=== PATIENT | male | born 1960 | race Asian ===

== ENCOUNTER 2021-02-03 20:08 | Emergency (ER) | payer SELFPAY ==
[~2021-02-03] VITALS: Ht 165.1 cm; Wt 68.0 kg
[2021-02-03] MEDS ORDERED: EPINEPHrine HCL 1 MG/10 ML SYRG IV ONE (20:14)
[2021-02-03] MEDS ORDERED: SODIUM BICARBONATE 8.4% INJ 50ML SYRINGE IV ONE (20:14)
[2021-02-03] MEDS ORDERED: AMIODARONE HCL (50 MG/ ML) 3 ML VIAL IV ONE (20:14)
[2021-02-03] MEDS ORDERED: ACCU-CHEK COMFORT CURVE STRIP VI ONE (20:30)
[2021-02-03 20:41] LABS: Hematocrit 35.8 % (41.0-53.0); Hemoglobin 11.4 g/dL (13.5-17.5); Mean Corpuscular Hemoglobin 30.8 pg (28.0-32.0); Mean Corpuscular Hgb Conc. 31.8 g/dL (32.0-36.0); Red Blood Cells 3.69 10^6/uL (4.5-5.90); Red Cell Distribution Width 15.5 % (11.8-14.3); White Blood Cell 8.6 10^3/uL (4.4-10.8)
[2021-02-03 20:54] LABS: Basophils % (manual) 0 (0.0-2.0); Blast Cells 0; Eosinophils % (manual) 0 (0-7); Myelocytes % 0; Promyelocytes % 0; Reactive Lymphocytes 0
[2021-02-03 20:59] LABS: Alanine Aminotransferase 41 U/L (16-61); Albumin 2.2 g/dL (3.4-5.0); Anion Gap 18 (5-15); Aspartate Aminotransferase 94 U/L (15-37); BUN/Creatinine Ratio 19.3; Blood Urea Nitrogen 22 mg/dL (7-18); Calcium 7.7 mg/dL (8.5-10.1); Carbon Dioxide 21 mmol/L (21-32); Chloride 100 mmol/L (98-107); GFR African American 84 mL/min; GFR Non-African American 69 mL/min; Glucose 371 mg/dL (74-106); Potassium 4.1 mmol/L (3.5-5.1); Sodium 139 mmol/L (136-145)
[2021-02-03 21:05] LABS: Alkaline Phosphatase 132 U/L (45-117); Bilirubin, Total 0.5 mg/dL (0.2-1.0); Lactic Acid w/Reflex 10.8 mmol/L (0.4-2.0); Total Protein 5.5 g/dL (6.4-8.2)
[2021-02-03 21:33] LABS: Band Neutrophils % (manual) 3; Lymphocytes % (manual) 52 (10.0-50.0); Metamyelocytes % 1; Monocytes % (manual) 7 (0-12)
== END 2021-02-03 20:20 ==
LOC: EDBD 20:08 → ER 20:13
DX: I46.9 Cardiac arrest, cause unspecified (principal); E11.9 Type 2 diabetes mellitus without complications
CPT/HCPCS: 31500; 36415; 80053; 83605; 83880; 84484; 85007; 85027; 87040; 92950; 92960; 99285; J0171; J0282; J7030